=== PATIENT | female | born 1960 | race Two or more races ===

== ENCOUNTER 2016-09-12 03:54 | Emergency (ER) | payer BC ==
[2016-09-12 04:06] VITALS: BP 140/88; PULSE 88; TEMP 98.6; BMI 24.1
--- NOTE | 2016-09-12 05:34 | PDOC ---
History of Present Illness <Wniston Villalta - Last Filed: 09/12/16 05:34> - General History Source: Patient Exam Limitations: No Limitations - History of Present Illness Initial Comments: 09/12/16 05:37 The patient is a 56-year-old female, with no significant past medical history, who presents to the ED with 4 days of right fourth digit swelling. The patient is complaining of pain to her finger. The patient denies having any other symptoms. <Aleja Calabrese - Last Filed: 09/12/16 05:37> <Radha Boyce - Last Filed: 09/12/16 06:51> - General Chief Complaint: Wound Infection Stated Complaint: PAIN RIGHT HAND Past History - Past Medical History Anemia: No Asthma: No Cancer: No Cardiac Disorders: No CVA: No COPD: No CHF: No Dementia: No Diabetes: No GI Disorders: No Disorders: Yes (STRESS INCONTINENCE) HTN: Yes Hypercholesterolemia: No Liver Disease: No Seizures: No Thyroid Disease: No - Surgical History Abdominal Surgery: No Appendectomy: No Cardiac Surgery: No Cholecystectomy: No Lung Surgery: No Neurologic Surgery: No Orthopedic Surgery: Yes (R KNEE ARTHROSCOPY) - Immunization History Immunization Up to Date: Yes - Psycho/Social/Smoking Cessation Hx Anxiety: No Suicidal Ideation: No Smoking Status: No Smoking History: Never smoked Have you smoked in the past 12 months: No Number of Cigarettes Smoked Daily: 0 Hx Alcohol Use: No Drug/Substance Use Hx: No Substance Use Type: None Hx Substance Use Treatment: No <Winston Villalta - Last Filed: 09/12/16 05:34> <Aleja Calabrese - Last Filed: 09/12/16 05:37> <Radha Boyce - Last Filed: 09/12/16 06:51> - Past Medical History Allergies/Adverse Reactions: Allergies Allergy/AdvReac Type Severity Reaction Status Date / Time No Known Drug Allergies Allergy Verified 09/12/16 04:03 Home Medications: Ambulatory Orders Cephalexin Monohydrate [Keflex -] 500 mg PO DAILY #14 09/12/16 Cephalexin [Keflex] 500 mg PO BID #14 capsule 09/12/16 Methocarbamol [Robaxin -] 500 mg PO TID PRN 09/12/16 Oxycodone HCl/Acetaminophen [Percocet 5-325 mg Tablet] 1 tab PO Q6H PRN #20 tablet MDD 4 tabs 09/12/16 Sulfamethoxazole/Trimethoprim [Bactrim Ds -] 1 tab PO BID #14 tablet 09/12/16 Review of Systems - Review of Systems Able to Perform ROS?: Yes Comments:: 09/12/16 05:38 GENERAL/CONSTITUTIONAL: No fever or chills. No weakness. HEAD, EYES, EARS, NOSE AND THROAT: No change in vision. No ear pain or discharge. No sore throat. CARDIOVASCULAR: No chest pain or shortness of breath. RESPIRATORY: No cough, wheezing, or hemoptysis. GASTROINTESTINAL: No nausea, vomiting, diarrhea or constipation. GENITOURINARY: No dysuria, frequency, or change in urination. MUSCULOSKELETAL: No joint swelling or pain. No neck or back pain. (+)Pain in right fourth digit. SKIN: (+)swelling to the right fourth digit. NEUROLOGIC: No headache, vertigo, loss of consciousness, or change in strength/ sensation. ENDOCRINE: No increased thirst. No abnormal weight change. HEMATOLOGIC/LYMPHATIC: No anemia, easy bleeding, or history of blood clots. ALLERGIC/IMMUNOLOGIC: No hives. <Aleja Calabrese - Last Filed: 09/12/16 05:37> *Physical Exam - Vital Signs Last Vital Signs Temp Pulse Resp BP Pulse Ox 98.6 F 88 22 140/88 99 09/12/16 04:04 09/12/16 04:04 09/12/16 04:04 09/12/16 04:04 09/12/16 04:04 <Winston Villalta - Last Filed: 09/12/16 05:34> - Vital Signs Last Vital Signs Temp Pulse Resp BP Pulse Ox 98.6 F 88 22 140/88 99 09/12/16 04:04 09/12/16 04:04 09/12/16 04:04 09/12/16 04:04 09/12/16 04:04 - Physical Exam Comments: 09/12/16 05:39 GENERAL: Awake, alert, and fully oriented, in no acute distress HEAD: No signs of trauma EYES: PERRLA, EOMI, sclera anicteric, conjunctiva clear ENT: Auricles normal inspection, hearing grossly normal, nares patent, oropharynx clear without exudates. Moist mucosa. NECK: Normal ROM, supple, no lymphadenopathy, JVD, or masses LUNGS: Breath sounds equal, clear to auscultation bilaterally. No wheezes, and no crackles HEART: Regular rate and rhythm, normal S1 and S2, no murmurs, rubs or gallops ABDOMEN: Soft, nontender, normoactive bowel sounds. No guarding, no rebound. No masses EXTREMITIES: No clubbing or cyanosis. No pain with passive stretch. (+) Significant edema, erythema, and pain to palpation of right fourth digit. Mild limited range of motion. NEUROLOGICAL: Cranial nerves II through XII grossly intact. Normal speech, normal gait SKIN: Warm, Dry, normal turgor, no rashes or lesions noted <Aleja Calabrese - Last Filed: 09/12/16 05:37> - Vital Signs Last Vital Signs Temp Pulse Resp BP Pulse Ox 98.6 F 88 22 140/88 99 09/12/16 04:04 09/12/16 04:04 09/12/16 04:04 09/12/16 04:04 09/12/16 04:04 <Radha Boyce - Last Filed: 09/12/16 06:51> Procedures - Incision and Drainage I&D Site: Right: Other (FELON RIGHT MIDDLE FINGER) Betadine cleansed: Yes Anesthesia: 1% Lidocaine Volume(ml): 8 Blade Size: 10 Attempts: 1 Plain Packing: No Complications: none Dressing: Yes (BANDAID) Progress: 09/12/16 06:45 Patient tolerated procedure well. <Radha Boyce - Last Filed: 09/12/16 06:51> ED Treatment Course - Medications Given in the ED: ED Medications Discontinued Medications Generic Name Dose Route Start Last Admin Trade Name Maurizioq PRN Reason Stop Dose Admin Ibuprofen 800 mg 09/12/16 05:36 09/12/16 06:03 Motrin - PO 09/12/16 05:37 800 mg ONCE ONE Administration Lidocaine HCl 10 ml 09/12/16 05:48 09/12/16 06:11 Xylocaine 1% INF 09/12/16 05:49 10 ml ONCE ONE Administration Oxycodone/Acetaminophen 1 combo 09/12/16 05:36 09/12/16 06:03 Percocet 5/325 - PO 09/12/16 05:37 1 combo ONCE ONE Administration Trimethoprim/Sulfamethoxazole 1 each 09/12/16 05:37 09/12/16 06:03 Bactrim Ds - PO 09/12/16 05:38 1 each ONCE ONE Administration <Radha Boyce - Last Filed: 09/12/16 06:51> *DC/Admit/Observation/Transfer <Winston Villatla - Last Filed: 09/12/16 05:34> - Attestations Scribe Attestion: 09/12/16 05:42 Documentation prepared by Aleja Calabrese, acting as biomedical equipment tech for Winston Villalta MD. <Aljea Calabrese - Last Filed: 09/12/16 05:37> - Discharge Dispostion Admit: No <Radha Boyce - Last Filed: 09/12/16 06:51> Diagnosis at time of Disposition: Felon of finger of right hand - Discharge Dispostion Disposition: HOME Condition at time of disposition: Improved - Prescriptions Prescriptions: Sulfamethoxazole/Trimethoprim [Bactrim Ds -] 1 tab PO BID #14 tablet Cephalexin [Keflex] 500 mg PO BID #14 capsule Cephalexin Monohydrate [Keflex -] 500 mg PO DAILY #14 Oxycodone HCl/Acetaminophen [Percocet 5-325 mg Tablet] 1 tab PO Q6H PRN #20 tablet MDD 4 tabs PRN Reason: Severe Pain - Referrals Referrals: Beatris Bruno MD [Primary Care Provider] - - Patient Instructions Printed Discharge Instructions: DI for Wound Infection, DI for Felon Additional Instructions: Seguimiento dentro de 3 mcclendon para chequeo de la herida. Vuelva a [facility] departamento de emergencia para la evaluacin. Elfrida los medicamentos segn lo prescrito. Percocet para el dolor no aliviado por Motrin o Tylenol. No conduzca , harman alcohol ni opere maquinaria pesada mientras est tomando Percocet. Follow up within 3 days for wound check. Return to this emergency department for evaluation. Take medications as prescribed. Percocet for pain not relieved by Motrin or Tylenol. Do not drive, drink alcohol, or operate heavy machinery while taking Percocet. Print Language: AZERI - Post Discharge Activity Work/School Note: Back to Work
[2016-09-12] MEDS ORDERED: OXYCODONE/APAP 5/325MG COMBO TABLET PO ONE ×2 (05:36→06:52)
[2016-09-12] MEDS ORDERED: IBUPROFEN 400 MG TABLET (FP) PO ONE ×2 (05:36→05:46)
[2016-09-12] MEDS ORDERED: SULFAMETHOXAZOLE/TRIMETHOPRIM 800MG/160MG D.S. TABLET PO ONE (05:37)
[2016-09-12] MEDS ORDERED: OXYCODONE/APAP 5/325MG COMBO TABLET ONE ×2 (05:45→07:02)
[2016-09-12] MEDS ORDERED: SULFAMETHOXAZOLE/TRIMETHOPRIM 800MG/160MG D.S. TABLET ONE (05:46)
[2016-09-12] MEDS ORDERED: LIDOCAINE HCL 1%, 10 MG/ML (50 mL VIAL) INF ONE (05:48)
[2016-09-12] MEDS ORDERED: CEPHALEXIN MONOHYDRATE 500 MG CAPSULE (UD) PO ONE (06:52)
[2016-09-12] MEDS ORDERED: CEPHALEXIN MONOHYDRATE 250 MG CAPSULE (FP) ONE (07:02)
== END 2016-09-12 07:06 | disposition home or self-care (01) ==
LOC: JER 03:54
PROC: 0H9FXZZ Drainage of Right Hand Skin, External Approach (ICD-10-PCS; principal; 2016-09-12)
DX: L03.011 Cellulitis of right finger (principal)
CPT/HCPCS: 73130-TC-RT; 99281-25

== ENCOUNTER 2017-09-11 20:29 | Emergency (ER) | payer BC ==
[2017-09-11 20:42] VITALS: TEMP 97.8; BMI 29.9
[2017-09-11] MEDS ORDERED: ACETAMINOPHEN 500 MG TABLET (FP) PO ONE (23:29)
[2017-09-11] MEDS ORDERED: amLODIPine BESYLATE 5 MG TABLET (FP) PO ONE (23:30)
[2017-09-11] MEDS ORDERED: amLODIPine BESYLATE 5 MG TABLET (FP) ONE (23:32)
[2017-09-11] MEDS ORDERED: ACETAMINOPHEN 325 MG TABLET (FP) ONE (23:32)
--- NOTE | 2017-09-11 23:53 | PDOC ---
History of Present Illness - General Chief Complaint: Blood Pressure Problem Stated Complaint: BLOOD PRESSURE PROBLEM Time Seen by Provider: 09/11/17 22:41 History Source: Patient Exam Limitations: No Limitations - History of Present Illness Initial Comments: This is a 57 YOF with h/o HTN (takes amlodipine 5 mg daily) who presents with high blood pressure and left-sided headache and eye ache in the setting of not being able to take her normal amlodipine for the past three days. The headache is 9/10 and feels like squeezing, and it has been present for the past 4 hours. It is worsened by light and noise. She has had the same headache, on the same side of her face, in the past when she has missed her amlodipine. She has associated nausea and generalized weakness, as well as leg swelling and left knee pain. She denies any falls or recent trauma. Past History - Past Medical History Allergies/Adverse Reactions: Allergies Allergy/AdvReac Type Severity Reaction Status Date / Time No Known Drug Allergies Allergy Verified 09/11/17 20:41 Home Medications: Ambulatory Orders Amlodipine Besylate [Norvasc -] 5 mg PO DAILY #14 tablet 09/12/17 Anemia: No Asthma: No Cancer: No Cardiac Disorders: No CVA: No COPD: No CHF: No Dementia: No Diabetes: No GI Disorders: No Disorders: Yes (STRESS INCONTINENCE) HTN: Yes Hypercholesterolemia: No Liver Disease: No Seizures: No Thyroid Disease: No - Surgical History Abdominal Surgery: No Appendectomy: No Cardiac Surgery: No Cholecystectomy: No Lung Surgery: No Neurologic Surgery: No Orthopedic Surgery: Yes (R KNEE ARTHROSCOPY) - Immunization History Immunization Up to Date: Yes - Suicide/Smoking/Psychosocial Hx Smoking Status: No Smoking History: Never smoked Have you smoked in the past 12 months: No Number of Cigarettes Smoked Daily: 0 Information on smoking cessation initiated: No Hx Alcohol Use: No Drug/Substance Use Hx: No Substance Use Type: None Hx Substance Use Treatment: No Review of Systems - Review of Systems Able to Perform ROS?: Yes Constitutional: Yes: Weakness (generalized mild). No: Chills, Fever, Unexplained wgt Loss HEENTM: No: Nose Congestion, Throat Pain Respiratory: No: Cough, Shortness of Breath Cardiac (ROS): Yes: Lightheadedness (mild). No: Chest Pain, Palpitations ABD/GI: Yes: Nausea (mild). No: Constipated, Diarrhea, Vomiting : No: Burning, Dysuria Musculoskeletal: No: Back Pain, Neck Pain Integumentary: No: Bruising, Rash Neurological: Yes: Headache. No: Numbness, Tingling, Weakness, Dizziness Endocrine: No: Unexplained Weight Gain, Unexplained Weight Loss *Physical Exam - Vital Signs Last Vital Signs Temp Pulse Resp BP Pulse Ox 97.8 F 86 16 143/93 98 09/11/17 20:39 09/11/17 20:39 09/11/17 20:39 09/11/17 22:33 09/11/17 20:39 - Physical Exam General Appearance: Yes: Nourished, Appropriately Dressed, Mild Distress, Obese , Other (alert, oriented, appropriately answering questions, light turned off in room, patient has her hand over her forehead). No: Apparent Distress HEENT: positive: EOMI, Normal Voice, Hearing Grossly Normal. negative: Scleral Icterus (R), Scleral Icterus (L), Nasal Congestion Neck: positive: Trachea midline, Supple. negative: Tender, Rigid, Stridor, Tender lateral, Tender midline Respiratory/Chest: positive: Lungs Clear, Normal Breath Sounds. negative: Chest Tender, Respiratory Distress, Crackles, Rhonchi, Stridor, Wheezing Cardiovascular: positive: Regular Rhythm, Regular Rate, S1, S2. negative: Edema , JVD, Murmur Gastrointestinal/Abdominal: positive: Normal Bowel Sounds, Soft. negative: Tender, Organomegaly, Pulsatile Mass, Guarding Musculoskeletal: positive: Normal Inspection. negative: Decreased Range of Motion, Vertebral Tenderness Extremity: positive: Normal Capillary Refill, Normal Inspection, Normal Range of Motion. negative: Tender, Cyanosis Integumentary: positive: Normal Color, Dry, Warm. negative: Erythema, Rash, Bruising Neurologic: positive: pyrotechnician II-XII NML intact, Fully Oriented, Alert, Normal Mood/ Affect, Normal Response, Motor Strength 5/5, Finger to Nose (normal), Other (no nystagmus). negative: EOM Palsy, Facial Droop, Numbness, Sensory Deficit, Confused, Disoriented Medical Decision Making - Medical Decision Making 57 YO female patient p/w left sided headache in the setting of increased stress. Has not been able to take her normal amlodipine for the past 3 days. VS notable for: Initial BP 159/101, repeat 143/93, otherwise wnl Exam notable for: uncomfortable and laying flat in dark room but appropriate, no confusion, nonfocal neuro exam. DDX IBNLT migraine, trigeminal neuralgia, cluster CHILDS, SAH, ruptured or acutely expanded aneurysm, glaucoma, GCA, etc. Unlikely GCA as patient is not elderly, unlikely glaucoma as patient has no orbital abnormalities on exam, PERRLA. SAH as CHILDS did not have sudden onset and she has had similar headaches before. Unlikely aneurysm as patient has nonfocal neurological exam, no h/o sentinel bleed-like CHILDS. Unlikely cluster CHILDS as this is a single episode, no scleral injection, females less likely to have cluster CHILDS, she is not a smoker. Unlikely trigeminal neuralgia as patient's pain is described as squeezing, not burning/tingling and not located on facial skin. Ordered is Tylenol, Amlodipine 5 mg (patient's home dose). On reassessment: patient notes improved pain, has only residual pain now, wants to go home. Repeat VS: 140/84 The patient is appropriate for discharge home w/ close outpatient f/u. The patient is comfortable with this plan. She will take Motrin and/or Tylenol for pain. She will follow up with their regular doctor in the next 1-3 days. Return precautions are discussed. *DC/Admit/Observation/Transfer Diagnosis at time of Disposition: Migraine Qualifiers: Migraine type: unspecified Status migrainosus presence: without status migrainosus Intractability: not intractable Qualified Code(s): G43.909 - Migraine, unspecified, not intractable, without status migrainosus Hypertension Qualifiers: Hypertension type: unspecified Qualified Code(s): I10 - Essential (primary) hypertension - Discharge Dispostion Disposition: HOME Condition at time of disposition: Stable Admit: No - Prescriptions Prescriptions: Amlodipine Besylate [Norvasc -] 5 mg PO DAILY #14 tablet - Referrals Referrals: Keya Torres MD [Primary Care Provider] - - Patient Instructions Printed Discharge Instructions: DI for Migraine, DI for High Blood Pressure Additional Instructions: You were seen in the ER for a migraine and for high blood pressure. We did an exam, and we did not find any signs of an emergency. Your pain improved with the medications we gave you here in the ER. After our assessment, we believe you are not having a medical emergency and you are safe to go home. Please take [id number] pain relievers like naproxen (Aleve) or ibuprofen (Motrin) or Tylenol. Please also product picker your prescription for amlodipine which we are sending to your pharmacy. Follow up with your regular doctor(s) in the next 1-3 days. Call their clinic [facility], tell them you were seen in the ER, and tell them you need an appointment. Please come back to the ER at any time, 24 hours a day , for any new or worsening symptoms, like worsening headache, new numbness/ tingling, fainting, dizziness, new vision changes, high fever, or other symptoms. If you are having symptoms that make it unsafe to drive, please call 911. - Post Discharge Activity
[2017-09-12] MEDS ORDERED: METOCLOPRAMIDE HCL 10 MG TABLET (FP) PO ONE
[2017-09-12] MEDS ORDERED: diphenhydrAMINE HCL 50 MG CAPSULE PO ONE
--- NOTE | 2017-09-12 00:07 | PDOC ---
Attending Attestation - HPI HPI: 09/12/17 00:07 The patient is a 57 year old female, with a significant past medical history of HTN, who presents to the emergency department with, 4 hours of elevated blood pressure and a left-sided headache aan associated eyeache, rating as a 9/10, squeezing. As per patient, she has not been able to take her HTN medication for the past 3 days and has had secondary nausea and weakness. <Beth Weldon - Last Filed: 09/12/17 00:07> - Resident Resident Name: TiaraShante - ED Attending Attestation I have performed the following: I have examined & evaluated the patient, The case was reviewed & discussed with the resident, I agree w/resident's findings & plan, Exceptions are as noted - Physicial Exam PE: 09/12/17 00:32 Patient is awake and alert, nontoxic-appearing, afebrile Normocephalic, atraumatic PERRLA, EOMI, no photophobia Neck is supple, Kernig/Brudzinski-negative; cta rrr Cranial nerves II through XII grossly intact; motor is 5 of 54 - Medical Decision Making 09/12/17 00:33 57-year-old female with history of hypertension, migraine headaches who presents to the with atypical left hemicranial headache and elevated blood pressure after not taking her amlodipine for the past 3-4 days due to difficulty obtaining her prescription refilled. In the ER, patient is awake and alert with improved blood pressure without any acute interventions. Patient received Tylenol with resolution of her headache. I do not suspect subarachnoid hemorrhage or meningitis at this time. Patient will be prescribed amlodipine to continue as an outpatient. Will discharge. <Juwan Wei - Last Filed: 09/12/17 00:34> Attestations - Attestations 09/12/17 00:07 Documentation prepared by Beth Weldon, acting as electromedical service engineer for Juwan Wei MD. <Beth Weldon - Last Filed: 09/12/17 00:07>
[2017-09-12] MEDS ORDERED: METOCLOPRAMIDE HCL INJECTION 10 MG/2 ML VIAL IVPUSH ONE (00:09)
[2017-09-12 00:18] VITALS: BP 140/84; PULSE 82
== END 2017-09-12 00:30 | disposition home or self-care (01) ==
LOC: JER 20:29
DX: G43.909 Migraine, unspecified, not intractable, without status migrainosus (principal); I10 Essential (primary) hypertension
CPT/HCPCS: 99282-25

== ENCOUNTER 2018-05-25 16:46 | Emergency (ER) | payer BC ==
--- NOTE | 2018-05-25 16:54 | PDOC ---
Rapid Medical Evaluation Chief Complaint: Shortness of Breath Time Seen by Provider: 05/25/18 16:50 Medical Evaluation: Allergies Allergy/AdvReac Type Severity Reaction Status Date / Time No Known Drug Allergies Allergy Verified 09/11/17 20:41 05/25/18 16:50 I have performed a brief in-person evaluation of this patient. The patient presents with a CC of: SOB, CP HPI: Pt is a 58 YO female who states over the past 3 days she has had SOB and CP. Denies hx of CHF, asthma of CV hx. Pt describe the pain as a pressure and rates it at a 8/10. Pertinent PE: Skin: Clear Lungs: Clear Heart: RRR MS. Moves all extremities Neuro: Alert Psych: Age appropriate. I have ordered the following: CV protocol The patient will proceed to main ED further evaluation. Discharge Disposition - Diagnosis Chest pain Qualifiers: Chest pain type: unspecified Qualified Code(s): R07.9 - Chest pain, unspecified - Referrals - Patient Instructions - Post Discharge Activity
[2018-05-25 16:57] VITALS: BMI 29.9
[2018-05-25 17:30] LABS: BASO % 0.5 % (0-2.0); EOS % 4.6 % (0-4.5); HEMATOCRIT 36.2 % (32.4-45.2); HEMOGLOBIN 12.3 GM/dL (10.7-15.3); LYMPH % 37.6 % (8-40); MCH 26.2 pg (25.7-33.7); MCHC 33.9 g/dl (32.0-36.0); MEAN CELL VOLUME 77.4 fl (80-96); MEAN PLT VOLUME 7.9 fl (7.5-11.1); MONO % 8.7 % (3.8-10.2); NEUT % 48.6 % (42.8-82.8); PLATELET COUNT 321 K/MM3 (134-434); RBC 4.67 M/mm3 (3.60-5.2); RDW 14.7 % (11.6-15.6); WHITE BLOOD COUNT 8.7 K/mm3 (4.0-10.0)
[2018-05-25 18:00] LABS: ALBUMIN 3.9 g/dl (3.4-5.0); ALK PHOS 125 U/L (45-117); ANION GAP 6 MMOL/L (8-16); BILIRUBIN,TOTAL 0.3 mg/dL (0.2-1); BLOOD UREA NITROGEN 11 mg/dL (7-18); CALCIUM 8.8 mg/dL (8.5-10.1); CHLORIDE 103 mmol/L (98-107); CO2 31 mmol/L (21-32); CREATININE 0.8 mg/dL (0.55-1.3); GLUCOSE,RANDOM 112 mg/dL (74-106); POTASSIUM 3.8 mmol/L (3.5-5.1); SGOT/AST 22 U/L (15-37); SGPT/ALT 31 U/L (13-61); SODIUM 139 mmol/L (136-145)
[2018-05-25 18:19] LABS: INR 1.02 (0.83-1.09)
--- NOTE | 2018-05-25 18:32 | PDOC ---
Attending Attestation - Resident Resident Name: Ruben Monsalve - ED Attending Attestation I have performed the following: I have examined & evaluated the patient, The case was reviewed & discussed with the resident, I agree w/resident's findings & plan, Exceptions are as noted - HPI HPI: 05/25/18 18:30 58yo F hx HTN p/w L chest pain for 3 days. Pain is intermittent, worse with deep breath. Not exertional, radiates to back at times. Lasts for a few seconds at a time, then self resolves. Pain is a/w SOB as she feels she can not take a deep breath. No associated diaphoresis or lightheadness. No rashes. Had stress test 5yrs ago for CP which was reportedly negative. Took 3 baby aspirins today for pain. No fevers, chills, coughing, trauma, heavy lifting, n/v. Denies weakness or numbness. No recent travel or immobility. No leg swelling. Not on exogenous hormones. - Physicial Exam PE: 05/25/18 21:53 GENERAL: Awake, alert, and fully oriented, in no acute distress HEAD: No signs of trauma EYES: PERRLA, EOMI, sclera anicteric, conjunctiva clear ENT: Nares patent, oropharynx clear without exudates. Moist mucosa NECK: Normal ROM, supple, no lymphadenopathy, JVD, or masses LUNGS: Breath sounds equal, clear to auscultation bilaterally. No wheezes, and no crackles HEART: Regular rate and rhythm, normal S1 and S2, no murmurs, rubs or gallops. No ttp. ABDOMEN: Soft, nontender, normoactive bowel sounds. No guarding, no rebound. No masses EXTREMITIES: Normal range of motion, no edema. No cords, erythema, or tenderness. 2+ pulses. NEUROLOGICAL: Normal speech, cranial nerves intact, 5/5 strength in all 4 extremities, normal sensation to light touch in all 4 extremities, normal cerebellar exam, normal gait, normal tone SKIN: Warm, Dry, normal turgor, no rashes or lesions noted. - Medical Decision Making 05/25/18 21:54 58yo F hx HTN presents to the ED with 3 days of chest pain. Vitals unremarkable , exam unremarkable. DDx includes ACS although HS is 2 vs PE although pt is low risk vs MSK pain vs PNA. Tropx2 neg, dimer negative. Pt has not had CP while in ED. Requests DC home, will f/u with PMD within 1-2 days. I discussed the physical exam findings, ancillary test results and final diagnoses with the patient. I answered all of the patient's questions. The patient was satisfied with the care received and felt comfortable with the discharge plan and treatment plan. The patient will call their primary care physician within 24 hours to arrange follow-up and will return to the Emergency Department with any new, persistent or worsening symptoms. Heart Score/ECG Review - History History: Slightly suspicious - Electrocardiogram EKG: Normal - Age Age: 45-65 - Risk Factors Based on the list above the patient has:: 1-2 risk factors - Troponin Troponin: </= normal limit - Score Heart Score - Total: 2 #1 05/25/18 21:58 Twelve-lead EKG was performed and reviewed by me. Normal sinus rhythm, rate 75. Normal axis and intervals. No ST elevations or T-wave inversions.
--- NOTE | 2018-05-25 19:16 | PDOC ---
History of Present Illness - General Chief Complaint: Shortness of Breath Stated Complaint: BLOOD PRESSURE PROBLEM Time Seen by Provider: 05/25/18 16:50 History Source: Patient Exam Limitations: Language Barrier ([id number]) - History of Present Illness Initial Comments: 05/25/18 19:08 58 yo F with hx of HTN presents to the ED with chest pain for the past 4 days. The patient states it comes and goes, located on left chest wall, 8/10 severity , worsens with deep breaths, radiates to the back, and has associative SOB. Denies diaphoresis, lightheadedness, worsening pain with exertion, and chest trauma. Her last stress test was 5 years ago (unknown heel cover softener) and never had a cath before. Denies hx of OH and CVA. Took 3x 81 mg aspirins today. Family hx: Paternal OH Meds: amlodipine, aspirin Social: denies tobacco, alcohol, and substance abuse familial hx: paternal OH pmhx: Refer to above Shx: right breast reduction Past History - Past Medical History Allergies/Adverse Reactions: Allergies Allergy/AdvReac Type Severity Reaction Status Date / Time No Known Drug Allergies Allergy Verified 05/25/18 16:51 Home Medications: Ambulatory Orders Amlodipine Besylate [Norvasc -] 5 mg PO DAILY #14 tablet 09/12/17 Anemia: No Asthma: No Cancer: No Cardiac Disorders: No CVA: No COPD: No CHF: No Dementia: No Diabetes: No GI Disorders: No Disorders: Yes (STRESS INCONTINENCE) HTN: Yes Hypercholesterolemia: No Liver Disease: No Seizures: No Thyroid Disease: No - Surgical History Abdominal Surgery: No Appendectomy: No Cardiac Surgery: No Cholecystectomy: No Lung Surgery: No Neurologic Surgery: No Orthopedic Surgery: Yes (R KNEE ARTHROSCOPY) - Immunization History Immunization Up to Date: Yes - Suicide/Smoking/Psychosocial Hx Smoking Status: No Smoking History: Never smoked Have you smoked in the past 12 months: No Number of Cigarettes Smoked Daily: 0 Hx Alcohol Use: No Drug/Substance Use Hx: No Substance Use Type: None Hx Substance Use Treatment: No Review of Systems - Review of Systems Able to Perform ROS?: Yes Constitutional: No: Chills, Diaphoresis, Fever HEENTM: No: Recent change in vision, Ear Pain, Nose Pain, Throat Pain, Mouth Pain Respiratory: Yes: Shortness of Breath, SOB at Rest. No: Cough, Hemoptysis Cardiac (ROS): Yes: Chest Pain, Lightheadedness. No: Palpitations, Syncope, Chest Tightness ABD/GI: No: Constipated, Diarrhea, Nausea, Rectal Bleeding, Vomiting, Tarry Stools : No: Burning, Dysuria, Discharge, Flank Pain, Hematuria Musculoskeletal: No: Back Pain Integumentary: No: Rash Neurological: No: Headache, Numbness, Tremors, Weakness, Ataxia, Dizziness Psychiatric: No: Stressors Endocrine: No: Unexplained Weight Gain Hematologic/Lymphatic: No: Anemia *Physical Exam - Vital Signs Last Vital Signs Temp Pulse Resp BP Pulse Ox 98.5 F 84 17 144/84 100 05/25/18 16:51 05/25/18 16:51 05/25/18 16:51 05/25/18 16:51 05/25/18 16:51 - Physical Exam General Appearance: Yes: Nourished, Appropriately Dressed. No: Apparent Distress HEENT: positive: EOMI, VENU, Normal Voice, Symmetrical, Pharynx Normal, Hearing Grossly Normal. negative: Pale Conjunctivae, Scleral Icterus (R), Scleral Icterus (L), Pharyngeal Erythema, Excessive drooling Neck: positive: Trachea midline. negative: Tender, Lymphadenopathy (R), Lymphadenopathy (L), Tender lateral, Tender midline Respiratory/Chest: positive: Lungs Clear, Normal Breath Sounds. negative: Chest Tender, Respiratory Distress, Accessory Muscle Use, Paradoxal Breathing, Crackles, Rales, Rhonchi, Stridor, Wheezing, Hyperresonant Cardiovascular: positive: Regular Rhythm, Regular Rate, S1, S2. negative: Systolic Murmur Gastrointestinal/Abdominal: positive: Normal Bowel Sounds, Flat, Soft. negative : Tender, Decreased BS, Distended, Rebound Lymphatic: negative: Adenopathy Musculoskeletal: positive: Normal Inspection. negative: CVA Tenderness Extremity: positive: Normal Capillary Refill, Normal Inspection, Normal Range of Motion. negative: Tender, Swelling, Calf Tenderness, Erythema Integumentary: positive: Normal Color, Dry, Warm Neurologic: positive: hand tennis ball coverer II-XII NML intact, Fully Oriented, Alert, Normal Mood/ Affect, Normal Response, Motor Strength 5/5. negative: EOM Palsy, Sensory Deficit Moderate Sedation - Procedure Monitoring Vital Signs: Procedure Monitoring Vital Signs Temperature 98.5 F 05/25/18 16:51 Pulse Rate 84 12/05/18 16:51 Respiratory Rate 17 05/25/18 16:51 Blood Pressure 144/84 05/25/18 16:51 O2 Sat by Pulse Oximetry (%) 100 05/25/18 16:51 ED Treatment Course - LABORATORY CBC & Chemistry Diagram: 05/25/18 17:22 05/25/18 17:22 - ADDITIONAL ORDERS Additional order review: Laboratory Results 05/25/18 05/25/18 17:22 17:22 PT with INR 12.00 INR 1.02 Sodium 139 Potassium 3.8 Chloride 103 Carbon Dioxide 31 Anion Gap 6 L BUN 11 Creatinine 0.8 Creat Clearance w eGFR > 60 Random Glucose 112 H Calcium 8.8 Magnesium 2.0 Total Bilirubin 0.3 AST 22 ALT 31 Alkaline Phosphatase 125 H Creatine Kinase 209 H Creatine Kinase Index 0.6 CK-MB (CK-2) 1.4 Troponin I < 0.02 Total Protein 8.0 Albumin 3.9 05/25/18 17:22 RBC 4.67 MCV 77.4 L MCHC 33.9 RDW 14.7 MPV 7.9 Neutrophils % 48.6 Lymphocytes % 37.6 Monocytes % 8.7 Eosinophils % 4.6 H Basophils % 0.5 Medical Decision Making - Medical Decision Making 05/25/18 19:13 58 yo F with hx of HTN presents to the ED with chest pain for the past 4 days. Initial vitals: Initial Vital Signs Pulse Ox 100 05/25/18 16:47 Work up: ddx: ACS, PE (denies recent travels, immobilizations, hx of DVT/PE, recent surgeries, and use of horomones; cannot PERC out due to age), URI (had a URI 1.5 weeks ago), PNA, costochrondritis (no reproducible pain on palpation). will order cbc, cmp, trops, d-dimer, cxr, ekg. Laboratory Tests 05/25/18 05/25/18 05/25/18 17:22 17:22 17:22 WBC 8.7 RBC 4.67 Hgb 12.3 Hct 36.2 MCV 77.4 L MCH 26.2 MCHC 33.9 RDW 14.7 Plt Count 321 D MPV 7.9 Absolute Neuts (auto) 4.2 Neutrophils % 48.6 Lymphocytes % 37.6 Monocytes % 8.7 Eosinophils % 4.6 H Basophils % 0.5 Nucleated RBC % 0 PT with INR 12.00 INR 1.02 Sodium 139 Potassium 3.8 Chloride 103 Carbon Dioxide 31 Anion Gap 6 L BUN 11 Creatinine 0.8 Creat Clearance w eGFR > 60 Random Glucose 112 H Calcium 8.8 Magnesium 2.0 Total Bilirubin 0.3 AST 22 ALT 31 Alkaline Phosphatase 125 H Creatine Kinase 209 H Creatine Kinase Index 0.6 CK-MB (CK-2) 1.4 Troponin I < 0.02 Total Protein 8.0 Albumin 3.9 trops negative initially. will do a second set 3 hours after initial. low risk PE but cannot PERC out; will get d-dimer to assess if PE present. signed out to Dr. Zavala *DC/Admit/Observation/Transfer Diagnosis at time of Disposition: Chest pain Qualifiers: Chest pain type: unspecified Qualified Code(s): R07.9 - Chest pain, unspecified - Discharge Dispostion Disposition: HOME - Referrals Referrals: Keya Torres MD [Primary Care Provider] - - Patient Instructions Printed Discharge Instructions: DI for Atypical Chest Pain Additional Instructions: You were evaluated today in the ER for your chest pain. No concerning findings were found on chest xray, EKG, or laboratory evaluation. Please follow-up with primary care provider in 1-2 days for further evaluation. Return to ER if any return of pain, fever, chills, or other concerning symptoms. - Post Discharge Activity
--- NOTE | 2018-05-25 19:27 | PDOC ---
*Physical Exam - Vital Signs Last Vital Signs Temp Pulse Resp BP Pulse Ox 98.5 F 84 17 144/84 100 05/25/18 16:51 05/25/18 16:51 05/25/18 16:51 05/25/18 16:51 05/25/18 16:51 ED Treatment Course - LABORATORY CBC & Chemistry Diagram: 05/25/18 17:22 05/25/18 17:22 - ADDITIONAL ORDERS Additional order review: Laboratory Results 05/25/18 05/25/18 17:22 17:22 PT with INR 12.00 INR 1.02 Sodium 139 Potassium 3.8 Chloride 103 Carbon Dioxide 31 Anion Gap 6 L BUN 11 Creatinine 0.8 Creat Clearance w eGFR > 60 Random Glucose 112 H Calcium 8.8 Magnesium 2.0 Total Bilirubin 0.3 AST 22 ALT 31 Alkaline Phosphatase 125 H Creatine Kinase 209 H Creatine Kinase Index 0.6 CK-MB (CK-2) 1.4 Troponin I < 0.02 Total Protein 8.0 Albumin 3.9 05/25/18 17:22 RBC 4.67 MCV 77.4 L MCHC 33.9 RDW 14.7 MPV 7.9 Neutrophils % 48.6 Lymphocytes % 37.6 Monocytes % 8.7 Eosinophils % 4.6 H Basophils % 0.5 Medical Decision Making - Medical Decision Making 05/25/18 19:[address] Monsalve. 05/25/18 21:43 Patient labs grossly unconcerning as below. D-dimer negative. EKG normal. 2 troponins both negative. Discharging to home for further outpatient follow-up. Laboratory Results - last 24 hr 05/25/18 05/25/18 05/25/18 17:16 17:22 17:22 WBC 8.7 RBC 4.67 Hgb 12.3 Hct 36.2 MCV 77.4 L MCH 26.2 MCHC 33.9 RDW 14.7 Plt Count 321 D MPV 7.9 Absolute Neuts (auto) 4.2 Neutrophils % 48.6 Lymphocytes % 37.6 Monocytes % 8.7 Eosinophils % 4.6 H Basophils % 0.5 Nucleated RBC % 0 PT with INR 12.00 INR 1.02 D-Dimer 352 Sodium Potassium Chloride Carbon Dioxide Anion Gap BUN Creatinine Creat Clearance w eGFR Random Glucose Calcium Magnesium Total Bilirubin AST ALT Alkaline Phosphatase Creatine Kinase Creatine Kinase Index CK-MB (CK-2) Troponin I Total Protein Albumin 05/25/18 05/25/18 17:22 21:00 WBC RBC Hgb Hct MCV MCH MCHC RDW Plt Count MPV Absolute Neuts (auto) Neutrophils % Lymphocytes % Monocytes % Eosinophils % Basophils % Nucleated RBC % PT with INR INR D-Dimer Sodium 139 Potassium 3.8 Chloride 103 Carbon Dioxide 31 Anion Gap 6 L BUN 11 Creatinine 0.8 Creat Clearance w eGFR > 60 Random Glucose 112 H Calcium 8.8 Magnesium 2.0 Total Bilirubin 0.3 AST 22 ALT 31 Alkaline Phosphatase 125 H Creatine Kinase 209 H Creatine Kinase Index 0.6 CK-MB (CK-2) 1.4 Troponin I < 0.02 < 0.02 Total Protein 8.0 Albumin 3.9 *DC/Admit/Observation/Transfer Diagnosis at time of Disposition: Chest pain Qualifiers: Chest pain type: unspecified Qualified Code(s): R07.9 - Chest pain, unspecified - Discharge Dispostion Disposition: HOME - Referrals Referrals: Keya Torres MD [Primary Care Provider] - - Patient Instructions Printed Discharge Instructions: DI for Atypical Chest Pain Additional Instructions: You were evaluated today in the ER for your chest pain. No concerning findings were found on chest xray, EKG, or laboratory evaluation. Please follow-up with primary care provider in 1-2 days for further evaluation. Return to ER if any return of pain, fever, chills, or other concerning symptoms. - Post Discharge Activity
[2018-05-25 21:14] VITALS: BP 124/71; PULSE 78; TEMP 98
--- NOTE | 2018-05-26 10:29 | EKG ---
Test Reason : Blood Pressure : / mmHG Vent. Rate : 075 BPM Atrial Rate : 075 BPM P-R Int : 186 ms QRS Dur : 078 ms QT Int : 368 ms P-R-T Axes : 056 006 038 degrees QTc Int : 410 ms NORMAL SINUS RHYTHM POSSIBLE LEFT ATRIAL ENLARGEMENT BORDERLINE ECG WHEN COMPARED WITH ECG OF 03-APR-2010 09:14, NO SIGNIFICANT CHANGE WAS FOUND Confirmed by MIKI OVIEDO MD ([id number]) on 05/26/2018 10:28:43 AM Referred By: Confirmed By:MIKI OVIEDO MD
== END 2018-05-25 23:03 | disposition home or self-care (01) ==
LOC: JER 16:46
DX: R07.9 Chest pain, unspecified (principal); I10 Essential (primary) hypertension
CPT/HCPCS: 36415; 71046-TC-FY; 80053; 82550; 82553; 83735; 84484; 85025; 85379; 85610; 93005; 93010; 99284-25

== ENCOUNTER 2020-08-24 18:33 | Emergency (ER) | payer OTHER ==
[2020-08-24 18:42] VITALS: BP 145/94; PULSE 104; TEMP 98.1; BMI 31.6
[2020-08-24] MEDS ORDERED: METHOCARBAMOL 500 MG TABLET PO ONE (19:30)
[2020-08-24] MEDS ORDERED: METHOCARBAMOL 500 MG TABLET ONE (19:31)
[2020-08-24 19:54] LABS: EPI CELLS 35 /uL (0-25.1); HYALINE CASTS 2 /uL (0-3.1); PH,URINE 5.5 (5.0-8.0); URINE APPEARANCE CLEAR; URINE BACTERIA 225 /uL (0-1359); URINE BILIRUBIN NEGATIVE (NEGATIVE); URINE COLOR YELLOW; URINE GLUCOSE (UA) NEGATIVE (NEGATIVE); URINE KETONE NEGATIVE (NEGATIVE); URINE LEUK ESTERASE TRACE (NEGATIVE); URINE NITRITE NEGATIVE (NEGATIVE); URINE PROTEIN NEGATIVE (NEGATIVE); URINE RBC 4 /uL (0-23.9); URINE UROBILINOGEN 0.2 mg/dL (0.2-1.0); URINE WBC 33 /uL (0-25.8)
[2020-08-24] MEDS ORDERED: LIDOCAINE 5% TOPICAL PATCH TP ONE ×2 (20:25→21:19)
[2020-08-24] MEDS ORDERED: LIDOCAINE 5% TOPICAL PATCH ONE ×2 (20:45→21:16)
[2020-08-24] MEDS ORDERED: LIDOCAINE PATCH REMOVAL MC SCH ×2 (22:00)
== END 2020-08-24 21:29 | disposition home or self-care (01) ==
LOC: JER 18:33
DX: M54.5 Low back pain (principal); R10.9 Unspecified abdominal pain
CPT/HCPCS: 81003; 87086; 99284-25

== ENCOUNTER 2020-09-03 16:29 | Emergency (ER) | payer OTHER ==
[2020-09-03 16:35] VITALS: BP 136/89; PULSE 92; TEMP 97.9; BMI 32.4
[2020-09-03] MEDS ORDERED: KETOROLAC TROMETHAMINE 30 MG/1 ML VIAL IM ONE (18:42)
[2020-09-03] MEDS ORDERED: KETOROLAC TROMETHAMINE 30 MG/1 ML VIAL ONE (18:51)
== END 2020-09-03 19:42 | disposition home or self-care (01) ==
LOC: JER 16:29
PROC: 3E0233Z Introduction of Anti-inflammatory into Muscle, Percutaneous Approach (ICD-10-PCS; principal; 2020-09-03)
DX: M79.604 Pain in right leg (principal); M25.561 Pain in right knee
CPT/HCPCS: 73562-TC-RT-FY; 93971-TC; 99284-25

== ENCOUNTER 2021-11-10 07:35 | Emergency (ER) | payer OTHER ==
[2021-11-10 07:53] VITALS: BMI 29.9
[2021-11-10 09:26] LABS: BASO % 0.6 % (0-2.0); EOS % 3.5 % (0-4.5); HEMOGLOBIN 12.6 GM/dL (10.7-15.3); LYMPH % 42.6 % (8-40); MCH 26.4 pg (25.7-33.7); MCHC 33.2 g/dl (32.0-36.0); MEAN CELL VOLUME 79.6 fl (80-96); MEAN PLT VOLUME 8.2 fl (7.5-11.1); NEUT % 44.3 % (42.8-82.8); PLATELET COUNT 250 10^3/uL (134-434); RBC 4.77 M/mm3 (3.60-5.2); RDW 14.3 % (11.6-15.6); WHITE BLOOD COUNT 5.7 K/mm3 (4.0-10.0)
[2021-11-10 09:51] LABS: ALBUMIN 3.9 g/dl (3.4-5.0)
[2021-11-10 09:52] LABS: BLOOD UREA NITROGEN 13.4 mg/dL (7-18)
[2021-11-10 09:56] LABS: TOT PROT 7.4 g/dl (6.4-8.2)
[2021-11-10 09:57] LABS: BILIRUBIN,TOTAL 0.6 mg/dL (0.2-1)
[2021-11-10 10:00] LABS: CREATININE 0.8 mg/dL (0.55-1.3); N-TERMINAL BNP 26.3 pg/ml (5-125)
[2021-11-10 11:54] VITALS: BP 159/84; PULSE 67; TEMP 98.2
== END 2021-11-10 12:08 | disposition home or self-care (01) ==
LOC: JER 07:35
DX: R06.02 Shortness of breath (principal); I10 Essential (primary) hypertension
CPT/HCPCS: 36415; 71046-TC-FY; 80053; 83880; 84484; 85025; 93005; 93010; 99285-25

== ENCOUNTER 2022-09-29 09:38 | Emergency (ER) | payer OTHER ==
[2022-09-29 09:51] VITALS: RESP 18; BMI 29.9
[2022-09-29] MEDS ORDERED: KETOROLAC TROMETHAMINE 15 MG/ML VIAL IM ONE (10:34)
[2022-09-29] MEDS ORDERED: ACETAMINOPHEN 325 MG TABLET (FP) PO ONE (10:34)
[2022-09-29] MEDS ORDERED: diazePAM 2 MG TABLET PO ONE (10:35)
[2022-09-29] MEDS ORDERED: LIDOCAINE 5% TOPICAL PATCH TP ONE (10:36)
[2022-09-29] MEDS ORDERED: LIDOCAINE 5% TOPICAL PATCH ONE (10:44)
[2022-09-29] MEDS ORDERED: KETOROLAC TROMETHAMINE 30 MG/1 ML VIAL ONE (10:44)
[2022-09-29] MEDS ORDERED: diazePAM 2 MG TABLET ONE (10:44)
[2022-09-29] MEDS ORDERED: ACETAMINOPHEN 325 MG TABLET (FP) ONE (10:44)
[2022-09-29 11:43] LABS: PH,URINE 7.5 (5.0-8.0); URINE APPEARANCE CLEAR; URINE BILIRUBIN NEGATIVE (NEGATIVE); URINE COLOR YELLOW; URINE GLUCOSE (UA) NEGATIVE (NEGATIVE); URINE KETONE NEGATIVE (NEGATIVE); URINE LEUK ESTERASE NEGATIVE (NEGATIVE); URINE NITRITE NEGATIVE (NEGATIVE); URINE PROTEIN NEGATIVE (NEGATIVE); URINE UROBILINOGEN 0.2 mg/dL (0.2-1.0)
[2022-09-29 11:46] VITALS: BP 141/94; PULSE 97; TEMP 99.3
[2022-09-29] MEDS ORDERED: LIDOCAINE PATCH REMOVAL MC SCH (22:00)
== END 2022-09-29 12:24 | disposition home or self-care (01) ==
LOC: JERFT 09:38 → JER 09:38 → JERFT 12:24
PROC: 3E0233Z Introduction of Anti-inflammatory into Muscle, Percutaneous Approach (ICD-10-PCS; principal; 2022-09-29)
DX: M54.42 Lumbago with sciatica, left side (principal)
CPT/HCPCS: 81003; 99284-25